=== PATIENT | male | born 1965 | race Caucasian/White ===

== ENCOUNTER 2018-11-25 14:11 | Inpatient (IN) ==
[2018-11-25] MEDS ORDERED: NS 1,000 ML IV ONE (14:24)
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
[2018-11-25 14:33] LABS: BASO# 0.04 X1000 (0.0-0.2); BASO% 0.4 % (0.0-0.8); EOS# 0.06 X1000 (0.0-0.7); EOS% 0.7 % (0.0-10.0); HEMATOCRIT 38.5 % (42.0-52.0); IMM GRAN# 0.02 X1000 (0.0-0.04); IMM GRAN% 0.2 % (0.0-0.5); LYMPH# 1.53 X1000 (1.2-3.4); LYMPH% 16.7 % (20.5-51.1); MCHC 36.4 g/dL (33-37); MCV 88.1 FL (81-99); MONO# 0.51 X1000 (0.11-0.59); MONO% 5.6 % (1.7-9.3); MPV 10.5 FL (7.4-10.4); NEUT# 6.98 X1000 (1.4-6.5); NEUT% 76.4 % (42.2-75.2); PLT 281 X1000 (130-400); RBC 4.37 XMIL (4.7-6.1); RDW 12.6 % (11.5-14.5); WBC 9.14 X1000 (4.8-10.8)
[2018-11-25 14:44] LABS: INR 1.06
[2018-11-25 14:45] LABS: PTT 28.6 Seconds (22.3-41.8)
[2018-11-25 14:47] LABS: URINE SOURCE CLEAN CATCH
[2018-11-25 15:06] LABS: AGAP 14; CHLORIDE 104 mmol/L (98-107); POTASSIUM 4.1 mmol/L (3.5-5.1); SODIUM 141 mmol/L (136-145); TCO2 23 mmol/L (25-35)
[2018-11-25 15:06] LABS: UR AMPHETAMINES QUAL NONE DETECTED (NONE DETECT); UR BARBITUATES QUAL NONE DETECTED (NONE DETECT); UR BENZODIAZEPIN QUAL NONE DETECTED (NONE DETECT); UR CANNABINOIDS QUAL NONE DETECTED (NONE DETECT); UR COCAINE QUAL NONE DETECTED (NONE DETECT); UR METHADONE QUAL NONE DETECTED (NONE DETECT); UR OPIATES QUAL NONE DETECTED (NONE DETECT); UR OXYCODONE QUAL NONE DETECTED (NONE DETECT); UR PCP QUAL NONE DETECTED (NONE DETECT)
[2018-11-25 15:07] LABS: ACETAMINOPHEN < 1.2 ug/mL (10-30); ALB/GLOB RATIO 1.6; ALBUMIN 4.7 g/dL (3.5-5.0); ALKALINE PHOSPHATASE 107 U/L (32-122); BUN 22 mg/dL (8-22); CALCIUM 9.4 mg/dL (8.8-10.2); COSMO 298; CREATININE 1.1 mg/dL (0.7-1.2); ESTIMATED GFR > 60; GLUCOSE 343 mg/dL (70-104); GOT 41 U/L (10-34); GPT 32 U/L (10-44); SALICYLATES < 3.00 mg/dL (3-10); TOTAL BILIRUBIN 0.48 mg/dL (0.20-1.00); TOTAL PROTEIN 7.6 g/dL (6.3-8.3)
[2018-11-25 15:08] LABS: BILIRUBIN URINE NEGATIVE (NEGATIVE); BLOOD URINE SMALL (NEGATIVE); COLOR YELLOW; GLUCOSE URINE 300 mg/dL (NEGATIVE); KETONE URINE TRACE mg/dL (NEGATIVE); LEUKOCYTES URINE LARGE (NEGATIVE); NITRITE URINE NEGATIVE (NEGATIVE); PH URINE 5.5; PROTEIN URINE 70 mg/dL (NEGATIVE); SP GRAVITY URINE 1.033; TURBIDITY URINE HAZY (CLEAR); UROBILINOGEN URINE 2 mg/dL (NORMAL)
[2018-11-25 15:09] LABS: UR EPITHELIAL CELLS <10 /HPF (<10); URINE BACTERIA 4+ /HPF; URINE RBC <10 /HPF (<10); URINE WBC TNTC /HPF (<10)
[2018-11-25 15:09] LABS: ACETONE SERUM NEGATIVE (NEGATIVE)
--- NOTE | 2018-11-25 15:18 | Diag Imaging Result Doc PS360 ---
CT HEAD W/O CONTRAST - 11/25/2018 INDICATION: AMS COMPARISON: 08/08/2015 FINDINGS: There is a possible mild hypodensity centrally in the midbrain. This may just be artifact. No intracranial mass or hemorrhage. The skull is intact. The sinuses, mastoids, and middle ears are clear. IMPRESSION: Questionable hyperdensity in the central midbrain which may well be merely an artifact. A follow-up brain MRI is recommended. This exam was performed using automated exposure control, adjustment of mA or kV according to patient size, and/or use of iterative reconstruction technique Electronically signed by Sorin Mullins 11/25/2018 3:16 PM
[2018-11-25] MEDS ORDERED: ROCEPHIN 1 GM in NS 50 ML IV ONE (15:20)
--- NOTE | 2018-11-25 15:32 | ED EKG INTERP ---
This chart was entered by Odette Benoit Scribe, acting as scribe for David Barnes DO. EKG Interpretation - EKG Time of EKG reading by physician:: 14:36 EKG Read and Signed by:: Mary Oliver EKG Interpretation (*Must complete 3 of following elements*): Abnormal Rate: 105 Rhythm: sinus tachycardia [place]: normal QRS: LVH (minimal voltage criteria, may be normal variant) WI Interval: normal Comments: borderline ECG Attestation - Physician/ KEYONA Attestation Patient care was provided by Advanced Practice Provider:: Yes Advanced Practice Provider:: Mary Oliver Advanced Practice Provider documentation review:: The Mid-level provider documentation, treatment plan and medical decision making was reviewed by the physician who agrees with all treatment and medical decision making by the MLP. The physician spent face to face time with patient:: No Advanced Practice Provider documentation review:: Supervising physician onsite and consulted in the evaluation and care of this patient. The physician did not have a face to face encounter with the patient. This chart was documented by the indicated scribe, (Odette Benoit Scribe) and accurately reflects the services I performed and decisions made by Cameron reynoso Thomas E., DO, as attested by the provider's signature.
--- NOTE | 2018-11-25 15:33 | Diag Imaging Result Doc PS360 ---
CHEST-2 VIEWS - 11/25/2018 INDICATION: tachycardia COMPARISON: 06/21/2017 FINDINGS: Lung volumes are critically low. No infiltrates or edema. Heart size is grossly normal. IMPRESSION: Critically low lung volumes. Electronically signed by Sorin Mullins 11/25/2018 3:31 PM
[2018-11-25] MEDS ORDERED: ATIVAN IM ONE (15:39)
[2018-11-25] MEDS ORDERED: HALDOL IM ONE (16:37)
[2018-11-25] MEDS ORDERED: ATIVAN IV ONE (16:48)
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
--- NOTE | 2018-11-25 17:31 | EKG Report ---
Test Performed on : 11/25/2018 2:36:11 PM Test Reason : tachycardia Blood Pressure : / mmHG Vent. Rate : 105 BPM Atrial Rate : 105 BPM P-R Int : 166 ms QRS Dur : 094 ms QT Int : 358 ms P-R-T Axes : 035 -24 038 degrees QTc Int : 473 ms Sinus tachycardia. Minimal voltage criteria for LVH, may be normal variant Borderline ECG When compared with ECG of 24-JUL-2017 03:55, Vent. rate has increased BY 44 BPM Unconfirmed Result
[2018-11-25] MEDS ORDERED: ATIVAN IV PRN (18:12)
[2018-11-25] MEDS ORDERED: TYLENOL PO PRN (18:12)
[2018-11-25] MEDS ORDERED: GEODON IM PRN (18:12)
[2018-11-25] MEDS ORDERED: ZOFRAN IV PRN (18:12)
[2018-11-25] MEDS ORDERED: STERILE WATER INJ. INJ PRN (18:12)
[2018-11-25] MEDS: NS 1,000 ML IV SCH (18:43)
[2018-11-25] MEDS: HUMULIN R SUBQ SCH ×2 (18:44→21:11)
[2018-11-25] MEDS ORDERED: CALMOSEPTINE OINTMENT TOP PRN (19:58)
[2018-11-25 20:15] LABS: URINE SOURCE CATH
[2018-11-25 20:32] LABS: BILIRUBIN URINE NEGATIVE (NEGATIVE); BLOOD URINE NEGATIVE (NEGATIVE); COLOR STRAW; GLUCOSE URINE TRACE mg/dL (NEGATIVE); KETONE URINE NEGATIVE (NEGATIVE); LEUKOCYTES URINE MODERATE (NEGATIVE); NITRITE URINE NEGATIVE (NEGATIVE); PH URINE 7.5; PROTEIN URINE NEGATIVE (NEGATIVE); SP GRAVITY URINE 1.008; TURBIDITY URINE CLEAR (CLEAR); UROBILINOGEN URINE NORMAL (NORMAL)
[2018-11-25 20:33] LABS: UR EPITHELIAL CELLS <10 /HPF (<10); URINE BACTERIA NEGATIVE /HPF; URINE RBC <10 /HPF (<10); URINE WBC 20-40 /HPF (<10)
[2018-11-25] MEDS ORDERED: ZYPREXA ZYDIS PO SCH (21:00)
[2018-11-25] MEDS ORDERED: HUMULIN R SUBQ SCH (21:00)
[2018-11-26] MEDS: HUMULIN R SUBQ SCH ×3 (02:20→09:40)
[2018-11-26] MEDS: NS 1,000 ML IV SCH ×2 (02:21→11:15)
[2018-11-26 06:48] LABS: BASO# 0.04 X1000 (0.0-0.2); BASO% 0.5 % (0.0-0.8); EOS# 0.17 X1000 (0.0-0.7); EOS% 2.2 % (0.0-10.0); HEMATOCRIT 35.2 % (42.0-52.0); HEMOGLOBIN 12.3 g/dL (14.0-18.0); IMM GRAN# 0.02 X1000 (0.0-0.04); IMM GRAN% 0.3 % (0.0-0.5); LYMPH# 1.93 X1000 (1.2-3.4); LYMPH% 25.2 % (20.5-51.1); MCH 31.3 PG (27-31); MCHC 34.9 g/dL (33-37); MCV 89.6 FL (81-99); MONO# 0.63 X1000 (0.11-0.59); MONO% 8.2 % (1.7-9.3); MPV 11.5 FL (7.4-10.4); NEUT# 4.86 X1000 (1.4-6.5); NEUT% 63.6 % (42.2-75.2); PLT 200 X1000 (130-400); RBC 3.93 XMIL (4.7-6.1); RDW 12.5 % (11.5-14.5); WBC 7.65 X1000 (4.8-10.8)
[2018-11-26 07:06] LABS: AGAP 10; ALB/GLOB RATIO 1.5; ALBUMIN 3.3 g/dL (3.5-5.0); ALKALINE PHOSPHATASE 82 U/L (32-122); BUN 11 mg/dL (8-22); CALCIUM 8.3 mg/dL (8.8-10.2); CHLORIDE 111 mmol/L (98-107); COSMO 285; CREATININE 0.6 mg/dL (0.7-1.2); ESTIMATED GFR > 60; GLUCOSE 107 mg/dL (70-104); GOT 31 U/L (10-34); GPT 23 U/L (10-44); POTASSIUM 3.5 mmol/L (3.5-5.1); SODIUM 143 mmol/L (136-145); TCO2 22 mmol/L (25-35); TOTAL BILIRUBIN 0.32 mg/dL (0.20-1.00); TOTAL PROTEIN 5.5 g/dL (6.3-8.3)
[2018-11-26 07:33] LABS: HEMOGLOBIN A1C 7.1 % (4.8-6.0)
--- NOTE | 2018-11-26 09:19 | Diag Imaging Result Doc PS360 ---
EXAM: MRI BRAIN W/WO CONTRAST 11/26/2018 HISTORY: hyperdensity TECHNIQUE: T1 sagittal, axial and post gadolinium-enhanced axial with coronal reformation, axial T2, FLAIR, and coronal gradient echo. COMMENT: There are no previous MRI studies. There is no evidence of mass effect or bleed. There is no evidence of hydrocephalus. There is no evidence of abnormal gadolinium enhancement. No diffusion-weighted sequence was performed as the patient could not tolerate further sequences. IMPRESSION: No evidence of acute intracranial disease. Electronically signed by Harjit Streeter 11/26/2018 9:16 AM
[2018-11-26] MEDS ORDERED: HUMULIN R SUBQ SCH (11:00)
[2018-11-26] MEDS ORDERED: ROCEPHIN 1 GM in NS 50 ML IV SCH (11:00)
--- NOTE | 2018-11-26 11:42 | PROGRESS NOTE ---
DATE: 11/26/2018 SUBJECTIVE: Patient has no major complaints. He is still somewhat manic, although much less agitated than he was last night, but he is still talking nonstop and will redirect, but he understands that he needs a psychiatric evaluation and most likely from my standpoint inpatient care, but I do not make that call. OBJECTIVE: Vital Signs: Blood pressure 147/88, heart rate 77, respiratory rate 17, temperature was afebrile. He had a little bit of temperature yesterday. Cardiovascular: Regular rate and rhythm. Pulmonary: Bilateral breath sounds clear to auscultation. GI: Soft, nontender, nondistended. Bowel sounds are positive. LABORATORY DATA: White count 7, hemoglobin and hematocrit 12 and 35, platelets 200,000. Rest of his labs look okay. MRI was negative, so were the CT findings. PROBLEM LIST: 1. Schizo-affective versus bipolar 1 with acute chavez. He will need psychiatric evaluation and possible inpatient treatment. 2. Gram-negative urinary tract infection. He is currently on Rocephin or at least he should be on Rocephin. We can switch him to Keflex once we get sensitivities. 3. Hyperglycemia with uncontrolled diabetes. I will resume his metformin, advance his diet. DISPOSITION: He is medically stable for discharge at this point, just waiting on psychiatric evaluation per Sharan. cc: Amarjit Montalvo MD
[2018-11-26 16:13] VITALS: BP 163/84
[2018-11-26] MEDS ORDERED: GLUCOPHAGE PO SCH (17:00)
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
== END 2018-11-26 16:08 | disposition home or self-care (01) | DRG 690 ==
LOC: ED 14:11 → ICU 17:41
PROVIDERS: ATTEND Internal Medicine